=== PATIENT | female | born 1985 | race Caucasian/White ===

== ENCOUNTER 2016-12-05 11:08 | Outpatient (CLI) | payer OTHER ==
[~2016-12-05] VITALS: Ht 157.5 cm; Wt 91.7 kg
[2016-12-05 12:28] VITALS: Ht 157.5 cm; Wt 91.7 kg
[2016-12-05] MEDS ORDERED: PREN1TAB13 PO (12:34)
[2016-12-05] MEDS ORDERED: LACTATED RINGER'S 1,000 ML IV* STA (13:21)
--- NOTE | 2016-12-05 13:38 | RADRPT ---
PROCEDURE: Obstetrical ultrasound CLINICAL INDICATION: Labor TECHNIQUE: Multiple sonographic images of the pelvis were obtained. The images were reviewed on a PACS workstation. COMPARISON: None FINDINGS: The cervix is not well visualized. There is a single viable intrauterine gestation. Cardiac activity is present with 137 beats per minute. There is a vertex presentation. The placenta is anterior. There is no evidence for an abruption or placenta previa. There is a subjectively normal amount of amniotic fluid. Measurements were made in order to determine age. The results are as follows (cm): BPD =8.72 HC =31.45 AC =31.66 FL =6.65 Estimated gestational age by ultrasound of approximately 35 weeks, 1 day. The estimated date of delivery by ultrasound is 01/08/2017. Estimated gestational age by LMP of approximately 36 weeks, 0 days. The estimated date of delivery by LMP is 01/02/2017. EFW = 2606 grams (28th percentile) IMPRESSION: Single viable intrauterine gestation of approximately 35 weeks, 1 day . The estimated date of delivery is 01/08/2017 . Dating by ultrasound is within 6 days of dating by LMP. Cephalic presentation. Estimated weight is in the 28th percentile. The cervix is not well visualized. RPTAT: EE Physician Chary Date Time Electronically viewed and signed by Physician Chary on 12/05/2016 13:38 /
--- NOTE | 2016-12-05 13:39 | RADRPT ---
PROCEDURE: US OB biophysical profile. CLINICAL INDICATION: evaluation TECHNIQUE: Multiple sonographic images of the pelvis were obtained. The images were reviewed on a PACS workstation. COMPARISON: No prior studies are available for comparison. FINDINGS: There is a single viable intrauterine gestation. Cardiac activity is present with 154 beats per min doron. There is a vertex presentation. The placenta is anterior. There is no evidence of placental abruption. There is a normal amount of amniotic fluid with an DEAN = 11.4 cm. Biophysical profile: movement 2/2 tone 2/2. breathing 2/2 DEAN 2/2 Total 02/07 RPTAT: AA . IMPRESSION: Normal biophysical profile. Normal DEAN. Physician Chary Date Time Electronically viewed and signed by Physician Chary on 12/05/2016 13:38 RA/
[2016-12-05 13:48] LABS: ADD SCAN DIFF NO
[2016-12-05 13:51] LABS: BASOPHILS % 0.2 % (0.0-2.0); EOSINOPHILS % 0.2 % (0.0-7.0); HEMATOCRIT 36.9 % (37.0-47.0); HEMOGLOBIN 12.5 g/dl (12.0-16.0); LYMPHOCYTES # 0.8 10^3/ul (0.8-2.9); LYMPHOCYTES % 8.6 % (15.0-51.0); MEAN CORPUSCULAR HEMOGLOBIN 28.8 pg (29.0-33.0); MEAN CORPUSCULAR HGB CONC 33.9 g/dl (32.0-37.0); MEAN PLATELET VOLUME 11.3 fl (7.4-10.4); MONOCYTE # 0.4 10^3/ul (0.3-0.9); MONOCYTES % 4.5 % (0.0-11.0); NEUTROPHIL # 7.8 10^3/ul (1.6-7.5); NEUTROPHILS % 86.1 % (39.0-77.0); PLATELET COUNT 201 10^3/UL (140-415); RED BLOOD COUNT 4.34 10^6/ul (4.20-5.40); RED CELL DISTRIBUTION WIDTH 12.5 % (11.5-14.5); WHITE BLOOD COUNT 9.1 10^3/ul (4.8-10.8)
[2016-12-05 14:02] LABS: ADD UMIC NO; URINE BILIRUBIN (Dip) NEGATIVE (NEGATIVE); URINE BLOOD (Dip) NEGATIVE (NEGATIVE); URINE COLOR LT. YELLOW (YELLOW); URINE GLUCOSE (Dip) NEGATIVE (NEGATIVE); URINE KETONES (Dip) NEGATIVE (NEGATIVE); URINE LEUKOCYTE ESTERASE (Dip) NEGATIVE (NEGATIVE); URINE NITRITE (Dip) NEGATIVE (NEGATIVE); URINE TOTAL PROTEIN (Dip) NEGATIVE (NEGATIVE); URINE UROBILINOGEN (Dip) 0.2 E.U./dL (0.1-1.0)
[2016-12-05 14:14] LABS: ALBUMIN/GLOBULIN RATIO 1.42; BILIRUBIN,INDIRECT 0.4 mg/dl (0-1.1); BILIRUBIN,TOTAL 0.4 mg/dl (0.2-1.3); CALCIUM 8.9 mg/dl (8.4-10.2); TOTAL PROTEIN 6.8 g/dl (6.1-8.1)
[2016-12-05 14:15] LABS: CREATININE 0.61 mg/dl (0.44-1.00)
--- NOTE | 2016-12-05 15:05 | TRIAGE ---
OB Triage Datetime Report Generated by CPN: 12/05/2016 15:05 Datetime: 12/05/2016 12:05 EGA: 36.0 Datetime: 12/05/2016 11:57 Stage of : OB Triage Maternal Assessment Level of Consciousness: Fully Conscious DTR's/Clonus: DTRs 2+; No Clonus Headache: Denies Blurred Vision: No Respiratory Effort: Unlabored Breath Sounds, Left: Clear and Equal Breath Sounds, Right: Clear and Equal Nausea/Vomiting: Present RUQ Epigastric Pain: Denies Facial Edema: None Labor Evaluation Frequency: 5-6 Monitor Mode: External Quality: Mild Pattern: Normal: <= 5 Contractions in 10 Minutes Resting Tone Jet: Relaxed Heart Rate FHR Baseline Rate: 150 Monitor Mode: External US FHR Baseline Changes: No Baseline Change Variability: Moderate 6-25 bpm Accelerations: 15X15 Decelerations: None Category: Category I Vaginal Exam Membrane Status: Intact Datetime: 12/05/2016 11:33 Monitor Mode: External Resting Tone Jet: Relaxed Heart Rate FHR Baseline Rate: 150 Monitor Mode: External US FHR Baseline Changes: No Baseline Change Variability: Minimal - Undetectable to <=5 bpm Accelerations: 15X15 Decelerations: None Category: Category I Vaginal Exam Membrane Status: Intact Datetime: 12/05/2016 11:30 Time of Arrival: 12/05/2016 11:15 Arrived By: Ambulatory Arrived From: Home Chief Complaint: DIARRHEA Movement: Present Contractions: Irregular Contractions: 6-7 Rupture of Membranes: Denies Vaginal Bleeding: None Vaginal Discharge: Denies Recent Sexual Intercouse: Denies Abdominal Trauma: Not Applicable Patient Complaints: Cramping; Nausea; Other Time Provider Notified: 12/05/2016 12:10 Provider Notified: TIA
--- NOTE | 2016-12-05 15:12 | HP ---
Date/Time of Note Date/Time of Note DATE: 12/05/16 TIME: 15:06 OB - History Hx of Present Free Text/Dictation IUP at 36 weeks who reports with h/o diarrhea. she denies UC or Vaginal bleeding or loss of fluid per vagina. she reports good FM. denies fever or blood in stool. Care: Good Care Ultrasounds: Normal mid trimester US Obstetrical Complications: None Medical Complications: None Past Family/Social History * Past Medical, Surgical, Family and Obstetric Histories reviewed from chart. OB Admission Exam Physical Exam HEENT: WNL Heart: Rhythm Normal Lungs: Clear, Equal Abdomen: WNL Extremities: Normal Reflexes: Normal Cervical Dilatation: None Effacement: 0% Station: Ballotable Last 72 hours Lab Results CBC & BMP 12/05/16 13:25 Liver Function Test 12/05/16 13:25 Alanine Aminotransferase (ALT/SGPT) 22 Albumin 4.0 Alkaline Phosphatase 124 H Aspartate Amino Transf (AST/SGOT) 16 Direct Bilirubin 0.00 Total Protein 6.8 OB Assessment/Plan Other Assessment: diarrhea resolved dehydration. s/p hydration she desires to go home Other plan: october d/c home ESTEBAN WEBER MD Dec 05, 2016 15:12
== END 2016-12-05 15:40 | disposition home or self-care (01) ==
LOC: OBT 11:08 → L-D 11:10 → OBT 15:40
PROVIDERS: ATTEND Specialist
DX: O26.893 Other specified pregnancy related conditions, third trimester (principal); R19.7 Diarrhea, unspecified; E86.0 Dehydration; O60.03 Preterm labor without delivery, third trimester; Z3A.36 36 weeks gestation of pregnancy
CPT/HCPCS: 76815; 76818; 80053; 81003; 85025; 96360; G0463; J7120

== ENCOUNTER 2016-12-26 11:29 | Inpatient (IN) | payer OTHER ==
[~2016-12-26] VITALS: Ht 157.5 cm; Wt 94.5 kg
[~2016-12-26 11:29] MED LIST: PREN1TAB13 PO
[2016-12-26] MEDS ORDERED: LACTATED RINGER'S 1,000 ML IV SCH (11:40)
[2016-12-26 11:59] VITALS: Ht 157.5 cm; Wt 94.5 kg
[2016-12-26 12:00] VITALS: BP 123/63; PULSE 69; RESP 18
[2016-12-26] MEDS ORDERED: CARBOPROST 250 MCG INJ IM PRN ×2 (12:00→13:30)
[2016-12-26] MEDS ORDERED: MISOPROSTOL 200 MCG TAB PR PRN ×2 (12:00→13:30)
[2016-12-26] MEDS ORDERED: OXYTOCIN 30 UNITS/LR 500 ML IV SCH (12:00)
[2016-12-26] MEDS ORDERED: OXYTOCIN 30 UNITS/LR 500 ML IV PRN ×2 (12:00→13:30)
[2016-12-26] MEDS ORDERED: LIDOCAINE 1% (MPF) 30 ML INJ INJ PRN (12:00)
[2016-12-26] MEDS ORDERED: METHYLERGONOVINE 0.2 MG INJ IM PRN (12:00)
[2016-12-26] MEDS ORDERED: LACTATED RINGER'S 1,000 ML IV PRN (12:00)
[2016-12-26 12:04] LABS: ADD SCAN DIFF NO
[2016-12-26 12:08] LABS: BASOPHILS % 0.1 % (0.0-2.0); EOSINOPHILS # 0.1 10^3/ul (0.0-0.5); EOSINOPHILS % 0.8 % (0.0-7.0); HEMOGLOBIN 12.5 g/dl (12.0-16.0); LYMPHOCYTES # 1.3 10^3/ul (0.8-2.9); MEAN CORPUSCULAR HEMOGLOBIN 28.8 pg (29.0-33.0); MEAN CORPUSCULAR HGB CONC 34.7 g/dl (32.0-37.0); MEAN CORPUSCULAR VOLUME 82.9 fl (82.0-101.0); MEAN PLATELET VOLUME 11.7 fl (7.4-10.4); MONOCYTE # 0.4 10^3/ul (0.3-0.9); MONOCYTES % 4.6 % (0.0-11.0); NEUTROPHILS % 78.9 % (39.0-77.0); PLATELET COUNT 215 10^3/UL (140-415); RED BLOOD COUNT 4.34 10^6/ul (4.20-5.40); WHITE BLOOD COUNT 8.9 10^3/ul (4.8-10.8)
[2016-12-26 12:33] LABS: INR 0.84; PROTIME 11.5 Sec (12.2-14.2); PT RATIO 0.9
[2016-12-26 12:34] LABS: PARTIAL THROMBOPLASTIN TIME 25.7 Sec (25.0-35.0)
--- NOTE | 2016-12-26 13:24 | HP ---
Date/Time of Note Date/Time of Note DATE: 12/26/16 TIME: 13:23 OB - History Hx of Present Free Text/Dictation with IUP at 39 weeks who presented in labor Care: Good Care Ultrasounds: Normal mid trimester US Obstetrical Complications: Other (previous baby with in utero stroike) Medical Complications: None Past Family/Social History * Past Medical, Surgical, Family and Obstetric Histories reviewed from chart. OB Admission Exam Vital Signs Vital Signs Vital Signs Date Time Temp Pulse Resp B/P Pulse Ox O2 Delivery O2 Flow Rate FiO2 12/26/16 12:00 98.0 69 18 123/63 98 Room Air Physical Exam HEENT: WNL Heart: Rhythm Normal Lungs: Clear, Equal Abdomen: WNL Extremities: Normal Reflexes: Normal Cervical Dilatation: 10cm Effacement: 100% Last 72 hours Lab Results CBC & BMP 12/26/16 11:40 OB Assessment/Plan Reason for admission: active labor Plan: Expectant Management ESTEBAN WEBER MD Dec 26, 2016 13:24
--- NOTE | 2016-12-26 13:26 | LDN ---
Date/Time of Note Date/Time of Note DATE: 12/26/16 TIME: 13:25 Delivery Summary with term IUP s/p of viable male Placenta Delivered: Spontaneously Meconium: none Episiotomy: No Perineal laceration: 1 Laceration repair: repaired with 3-0 Vicryl Anesthesia type: Local Sponge & Needle done & correct: Yes All needle counts correct: Yes Any foreign bodies felt in the: No Problems: Delivery Information Sex Sex: male Apgars 1 Minute: 8 5 Minute: 9 Suctioning Nose & mouth suctioned at earl: No Delee suction performed: No Umbilical Cord Umbilical cord with: 3 Vessels Cord presentations: no nuchal cord Cord Blood was obtained: Yes Mother & Baby Disposition Disposition Mom & Baby to Maternity; Good: Yes Baby to NICU: No ESTEBAN WEBER MD Dec 26, 2016 13:26
[2016-12-26] MEDS ORDERED: DIPHENHYDRAMINE 25 MG CAP PO PRN (13:30)
[2016-12-26] MEDS ORDERED: SENNA/DOCUSATE NA (8.6MG/50MG) TAB PO PRN (13:30)
[2016-12-26] MEDS ORDERED: MAGNESIUM HYDROXIDE 30ML CUP PO PRN (13:30)
[2016-12-26] MEDS ORDERED: LANOLIN 7 GM TUBE TOP PRN (13:30)
[2016-12-26] MEDS ORDERED: BENZOCAINE 20% 56 ML SPRAY TOP PRN (13:30)
[2016-12-26] MEDS ORDERED: ACETAMINOPHEN/CODEINE #3 TAB PO PRN ×2 (13:30)
[2016-12-26] MEDS ORDERED: DIPHENHYDRAMINE 50 MG INJ IV PRN (13:30)
[2016-12-26] MEDS ORDERED: NA PHOSPHATE/BIPHOS 133 ML ENEMA PR PRN (13:30)
[2016-12-26] MEDS ORDERED: WITCH HAZEL/GLYCERIN PAD PR PRN (13:30)
[2016-12-26] MEDS ORDERED: ONDANSETRON 4 MG INJ IV PRN (13:30)
[2016-12-26] MEDS ORDERED: ONDANSETRON 4 MG TAB PO PRN (13:30)
[2016-12-26] MEDS ORDERED: DIBUCAINE 1% 30 GM OINT PR PRN (13:30)
[2016-12-26] MEDS: OXYTOCIN 30 UNITS/LR 500 ML IV SCH ×2 (14:22→15:07)
[2016-12-26 15:20] VITALS: BP 116/66; PULSE 60; RESP 18
[2016-12-26 15:25] VITALS: BP 125/65; PULSE 67; RESP 20
[2016-12-26] MEDS: IBUPROFEN 600 MG TAB PO SCH (18:00)
[2016-12-26] MEDS: LACTATED RINGER'S 1,000 ML IV* SCH ×2 (19:30→21:26)
[2016-12-26 20:00] VITALS: BP 118/60; PULSE 60; RESP 20
[2016-12-26] MEDS ORDERED: SENNA/DOCUSATE NA (8.6MG/50MG) TAB PO SCH (21:00)
[2016-12-26 23:30] VITALS: BP 120/82; PULSE 79; RESP 18
[2016-12-27] MEDS: IBUPROFEN 600 MG TAB PO SCH ×4 (00:12→17:53)
[2016-12-27 03:45] VITALS: BP 97/57; PULSE 57; RESP 18
[2016-12-27 07:45] LABS: ADD SCAN DIFF NO
[2016-12-27 07:56] LABS: BASOPHILS % 0.3 % (0.0-2.0); EOSINOPHILS # 0.1 10^3/ul (0.0-0.5); EOSINOPHILS % 1.9 % (0.0-7.0); HEMATOCRIT 31.5 % (37.0-47.0); HEMOGLOBIN 10.5 g/dl (12.0-16.0); LYMPHOCYTES # 1.7 10^3/ul (0.8-2.9); MEAN CORPUSCULAR HEMOGLOBIN 28.5 pg (29.0-33.0); MEAN CORPUSCULAR HGB CONC 33.3 g/dl (32.0-37.0); MEAN CORPUSCULAR VOLUME 85.6 fl (82.0-101.0); MEAN PLATELET VOLUME 11.5 fl (7.4-10.4); MONOCYTE # 0.6 10^3/ul (0.3-0.9); MONOCYTES % 8.1 % (0.0-11.0); NEUTROPHIL # 4.5 10^3/ul (1.6-7.5); NEUTROPHILS % 65.1 % (39.0-77.0); PLATELET COUNT 165 10^3/UL (140-415); RED BLOOD COUNT 3.68 10^6/ul (4.20-5.40); RED CELL DISTRIBUTION WIDTH 13.3 % (11.5-14.5); WHITE BLOOD COUNT 6.9 10^3/ul (4.8-10.8)
[2016-12-27 08:08] VITALS: BP 94/56; PULSE 59; RESP 18
--- NOTE | 2016-12-27 10:25 | PN ---
Date/Time of Note Date/Time of Note DATE: 12/27/16 TIME: 10:23 OB Subjective Subjective Subjective Post vaginal delivery 1 Hospital visit Laboratory Tests Test 12/26/16 11:40 12/27/16 07:12 White Blood Count 8.910^3/ul 6.910^3/ul Red Blood Count 4.3410^6/ul 3.6810^6/ul Hemoglobin 12.5g/dl 10.5g/dl Hematocrit 36.0% 31.5% Mean Corpuscular Volume 82.9fl 85.6fl Mean Corpuscular Hemoglobin 28.8pg 28.5pg Mean Corpuscular Hemoglobin Concent 34.7g/dl 33.3g/dl Red Cell Distribution Width 13.0% 13.3% Platelet Count 25593^3/UL 28646^3/UL Mean Platelet Volume 11.7fl 11.5fl Neutrophils % 78.9% 65.1% Lymphocytes % 15.0% 24.0% Monocytes % 4.6% 8.1% Eosinophils % 0.8% 1.9% Basophils % 0.1% 0.3% Nucleated Red Blood Cells % 0.0/100WBC 0.0/100WBC Neutrophils # 7.010^3/ul 4.510^3/ul Lymphocytes # 1.310^3/ul 1.710^3/ul Monocytes # 0.410^3/ul 0.610^3/ul Eosinophils # 0.110^3/ul 0.110^3/ul Basophils # 0.010^3/ul 0.010^3/ul Nucleated Red Blood Cells # 0.010^3/ul 0.010^3/ul Prothrombin Time 11.5Sec Prothrombin Time Ratio 0.9 INR International Normalized Ratio 0.84 Activated Partial Thromboplast Time 25.7Sec Rapid Plasma Reagin NONREACTIVE Current Medications Medications (Trade) Dose Ordered Sig/Gary Route PRN Reason Start Time Stop Time Status Last Admin Dose Admin Lactated Ringer's (Lr) 1,000 ml @ 125 mls/hr Q8H IV 12/26/16 11:40 12/26/16 13:34 DC 12/26/16 11:56 Lidocaine 30 ml 30 ml ONCE PRN INJ EPISIOTOMY/TEARING 12/26/16 12:00 12/26/16 13:37 Oxytocin/Lactated Ringer's 500 ml @ 125 mls/hr ONCE -MAY REPEAT X1 IV 12/26/16 12:00 12/26/16 15:07 Oxytocin/Lactated Ringer's 500 ml @ 125 mls/hr ONCE IV 12/26/16 12:00 Lactated Ringer's 1,000 ml @ 2,000 mls/hr Q30M PRN IV PRE-EPIDURAL BOLUS 12/26/16 12:00 Oxytocin/Lactated Ringer's 500 ml @ 0 mls/hr ONCE PRN IV For Hemorrhage Management 12/26/16 12:00 12/26/16 13:34 DC Methylergonovine Maleate (Methergine) 0.2 mg ONCE PRN IM VAGINAL BLEEDING 12/26/16 12:00 Carboprost Tromethamine (Hemabate) 250 mcg ONCE PRN IM VAGINAL BLEEDING 12/26/16 12:00 12/26/16 13:34 DC Misoprostol 1000 mcg 1,[address] VAGINAL BLEEDING 12/26/16 12:00 12/26/16 13:34 DC Lactated Ringer's (Lr) 1,000 ml @ 125 mls/hr Q8H IV* 12/26/16 13:26 Ibuprofen (Motrin) 600 mg Q6 PO 12/26/16 18:00 12/27/16 06:00 Acetaminophen/ Codeine Phosphate (Tylenol No.3) 1 tab Q4H PRN PO PAIN LEVEL 1-5 12/26/16 13:30 Acetaminophen/ Codeine Phosphate (Tylenol No.3) 2 tab Q4H PRN PO PAIN LEVEL 6-10 12/26/16 13:30 Ondansetron HCl (Zofran Inj) 4 mg Q6H PRN IV NAUSEA AND/OR VOMITING 12/26/16 13:30 Ondansetron HCl (Zofran Tab) 4 mg Q6H PRN PO NAUSEA AND/OR VOMITING 12/26/16 13:30 Diphenhydramine HCl (Benadryl) 25 mg Q6H PRN PO PRURITUS 12/26/16 13:30 Diphenhydramine HCl (Benadryl) 25 mg Q6H PRN IV PRURITUS 12/26/16 13:30 Senna/Docusate Sodium (Senokot-S) 1 tab BID PO 12/26/16 21:00 12/26/16 21:00 DC Senna/Docusate Sodium (Senokot-S) 1 tab BID PRN PO CONSTIPATION 12/26/16 13:30 Magnesium Hydroxide (Milk Of Mag) 30 ml Q12H PRN PO CONSTIPATION 12/26/16 13:30 Sodium Biphosphate/ Sodium Phosphate (Fleet Enema) [address] CONSTIPATION 12/26/16 13:30 Witch Rafaela/ Glycerin (Tucks Pads) [address] MEDICATION PRN [address] HEMORRHOID/EPISIOTMY PAIN 12/26/16 13:30 12/26/16 17:19 Benzocaine (Dermoplast [place]) 1 spray BEDSIDE MEDICATION PRN TOP HEMORRHOID/EPISIOTMY PAIN 12/26/16 13:30 12/26/16 17:19 Dibucaine (Nupercainal) 1 applic BEDSIDE MEDICATION PRN CT HEMORRHOID/EPISIOTMY PAIN 12/26/16 13:30 Lanolin (Nuf-T-Xclssg) 1 applic BEDSIDE MEDICATION PRN TOP BEDSIDE FOR FERNANDO TO NIPPLES 12/26/16 13:30 12/26/16 17:22 Measles/Mumps/ Rubella Vaccine Live (Mmr Ii Vaccine) 0.5 ml ONCE ONCE SC* 12/28/16 09:00 12/28/16 09:01 Diphtheria/ Tetanus/Acell Pertussis (Adacel) 0.5 ml ONCE ONCE IM* 12/28/16 09:00 12/28/16 09:01 Varicella Virus Vaccine Live 1350 unit 1,350 unit ONCE ONCE SC* 12/28/16 09:00 12/28/16 09:01 Oxytocin/Lactated Ringer's 500 ml @ 0 mls/hr ONCE PRN IV For Hemorrhage Management 12/26/16 13:30 Carboprost Tromethamine (Hemabate) 250 mcg ONCE PRN IM VAGINAL BLEEDING 12/26/16 13:30 Misoprostol (Cytotec) 1,[address] VAGINAL BLEEDING 12/26/16 13:30 December 27, 2006 day 1 hospital visit Post day 1 Patient is doing well, Ambulatory She is afebrile Abdomen is soft , Fundus is firm Moderate amount of lochia Breasts are soft, Nipples are intact No calf tenderness. Perineum is healing well. Breast feeding the new born. DORIS MCCORMACK MD Dec 27, 2016 10:25
[2016-12-27 15:38] VITALS: BP 102/60; PULSE 68; RESP 18
[2016-12-27 19:40] VITALS: BP 111/58; PULSE 60; RESP 18
[2016-12-28 03:45] VITALS: BP 106/49; PULSE 59; RESP 18
[2016-12-28] MEDS: IBUPROFEN 600 MG TAB PO SCH ×3 (06:00→11:51)
[2016-12-28 08:10] VITALS: BP 96/52; PULSE 61; RESP 18
[2016-12-28] MEDS ORDERED: VARICELLA VACCINE LIVE/PF 1,350 UNIT/0.5 ML ML SC* ONE (09:00)
[2016-12-28] MEDS ORDERED: MEASLES,MUMPS,RUBELLA VACCINE INJ SC* ONE (09:00)
[2016-12-28] MEDS ORDERED: DIPHTH/TET/ACEL PERTUSS (ADULT) 0.5 ML VIAL IM* ONE (09:00)
--- NOTE | 2016-12-29 08:47 | DS ---
Date/Time of Note Date/Time of Note DATE: 12/29/16 TIME: 08:45 Obstetrical Discharge Record Final Diagnosis Final Diagnosis: Term delivered Vaginal Delivery Obstetrical Delivery: Spontaneous Complications Augmentation: No Induction: No Rupture of Membranes: No Condition on Discharge Physical Assessment Last Vitals: remained afebrile with stable vital signs Voiding: Yes Bowel Movement: Yes Breast: Soft, non-tender, Filling Fundus: Firm Abdomen and Incision: soft, not tender Calf Tenderness: No Patient Condition: Good ESTEBAN WEBER MD Dec 29, 2016 08:47
== END 2016-12-28 13:48 | disposition home or self-care (01) | DRG 775 ==
LOC: OBT 11:29 → L-D 11:29 → OBT 11:59 → L-D 12:02 → PP1 14:48
PROVIDERS: ADMIT Specialist; ATTEND Specialist
PROC: 10E0XZZ Delivery of Products of Conception, External Approach (ICD-10-PCS; principal; 2016-12-26)
PROC: 0HQ9XZZ Repair Perineum Skin, External Approach (ICD-10-PCS; 2016-12-26)
DX: O70.0 First degree perineal laceration during delivery (principal); Z87.59 Personal history of other complications of pregnancy, childbirth and the puerperium; Z37.0 Single live birth; Z3A.39 39 weeks gestation of pregnancy
CPT/HCPCS: 85025; 85610; 85730; 86592; 86900; 86901; 90715; 90716; G0463; J2590; J7120